=== PATIENT | female | born 1950 | race Caucasian/White ===

== ENCOUNTER 2018-07-01 22:49 | Observation (INO) | payer MEDICARE, BC ==
[2018-07-01] MEDS ORDERED: Fentanyl 100 MCG/2 ML VIAL ONE (23:51)
[2018-07-02] MEDS ORDERED: Acetaminophen 325 MG TAB PO PRN (01:56)
[2018-07-02] MEDS ORDERED: HYDROcodone/Acetaminophen 5/325 mg Tablet PO PRN (01:56)
[2018-07-02] MEDS: HYDROcodone/Acetaminophen 5/325 mg Tablet PO PRN ×2 (02:27→11:11)
[2018-07-02 02:59] VITALS: BMI 39.1
[2018-07-02 03:06] LABS: Troponin I Less than 0.010 ng/mL (< 0.028)
[2018-07-02] MEDS ORDERED: HYDROcodone/Acetaminophen 7.5/325 mg Tablet PO PRN ×2 (03:16)
--- NOTE | 2018-07-02 05:01 | HP ---
CHIEF COMPLAINT: Chest pain. HISTORY OF PRESENT ILLNESS: The patient is a 67-year-old female who presented in transfer from the [place] [facility]. The patient reports that she was working on some [employer] decorations about 6 days ago when she had a tumble and fell onto her left side. She stretched out her left hand to try to break her fall and came down on her arm. She had some pain in her left upper arm. It was causing her some immobility. She was trying to keep it into a sling, but was having hard time doing things such as getting dressed or fixing her hair. She then developed abrupt onset of a tearing type sensation in the left chest area around 2 p.m. on the day she presented to the emergency department, which was 07/01/2018. The patient had area of tenderness that she could palpate in the left lower anterior ribcage area and just medial to the left breast area. The pain has increased with any attempted movement or palpation. She has tried some [id number] medications such as anti-inflammatories without any significant improvement. She presented to the emergency department in [place] where her workup included a CT scan of the chest with PE protocol, which did not reveal any PE or aortic dissection. Labs were also obtained and her chemistries were unremarkable. Troponin was unremarkable specifically. She was given aspirin subsequently and transferred to our facility. They also did imaging of her left upper extremity, which did not reveal any evidence of fracture. Presently, the patient reports that the only thing that really helps significantly is the pain medications. She reports that her pain is 3/10, primarily worse because she has gotten up and gone to the bathroom and just that amount of movement was causing an increase in pain. The patient does note that she feels like the pain radiates directly to her back from a straight line from the anterior chest to the left back area, but does not feel like it radiates around her side. REVIEW OF SYSTEMS: The patient has no significant shortness of breath other than feeling like her breath is limited when she experiences pain taking a deep breath on that left side. She has no cough, fevers, or chills. She has no palpitations. She has no numbness, weakness, or tingling, or any other neurologic symptoms. All other systems were reviewed and all pertinent positives and negatives noted in the history of present illness. PAST MEDICAL HISTORY: Notable for hypertension and hyperlipidemia. She has a history of varicose vein ablation, some history of gastritis. 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 PAST SURGICAL HISTORY: Oophorectomy and tubal ligation and vein ablation. FAMILY HISTORY: Notable for some coronary artery disease. SOCIAL HISTORY: The patient is a nonsmoker, nondrug user. She does have 1 to 2 glasses of wine per month. She is . She is full code. Her would be her surrogate decision maker. ALLERGIES: PENICILLIN. MEDICATIONS: 1. Simvastatin 5 mg at bedtime. 2. Montelukast 10 mg daily. 3. Aspirin 81 mg daily. 4. Amiloride/hydrochlorothiazide 5/50 one p.o. daily. 5. Vitamin D3 15,000 units p.o. q.week. PHYSICAL EXAMINATION: VITAL SIGNS: Temperature 98.1, pulse 77, respirations 16, BP 105/58, O2 saturation 96% on room air. GENERAL APPEARANCE: Obese, age-appropriate female. She is in no distress. Awake, alert, oriented, pleasant, cooperative. HEENT: PERRL. No OP lesions. NECK: Supple and symmetric. HEART: Regular rate and rhythm without murmurs, gallops, or rubs. LUNGS: Clear to auscultation bilaterally. Good chest wall expansion and air exchange. ABDOMEN: Soft, nontender, and nondistended. Positive bowel sounds. No masses. No organomegaly. MUSCULOSKELETAL: Extremities have no cyanosis, clubbing, or edema. She does have tenderness to palpation in the distal lateral upper arm, primarily in the musculature. She has decreased range of motion in her shoulder because of pain in the upper arm with attempts to abduct the shoulder. She has small ganglion cyst on the right palmar surface of the wrist. She has little bit of edema in the base of the palms bilaterally. She also has very specific tenderness to palpation in the left lower anterior rib cage area, which reproduces her pain. It appears that this area may be slightly edematous and indurated. LABORATORY DATA: From outside facility, sodium 137, potassium 3.4, chloride 100 , CO2 of 29, BUN 21.6, creatinine 0.8, calcium 9.96, total bilirubin 0.3, AST 15, ALT 19, albumin 3.5, amylase 53, lipase 18. Troponin is less than 0.01. BNP 26.4. White count 10.3, hemoglobin 12.6, platelets 244. INR is 1.0. D-dimer 0.55. Urinalysis was negative. CTA of the chest negative. EKG; normal sinus rhythm at 85 beats per minute with no significant changes of the ST segments or T-waves. IMPRESSION AND PLAN: 1. Chest pain. This appears to be more musculoskeletal. She is placed in observation, continued on telemetry, and we will continue to trend her troponins. We will continue to offer her pain management with pain medicines as needed. She is presently kept n.p.o., although it is unclear that she will need any type of further testing. Once the troponins are fully negative, maybe worth call to her quality worker to see if she feels there is need to pursue any further intervention. However, may need to wait until she is somewhat improved. We will ask Physical Therapy to see the patient as well to see if we can offer her any further benefit from sling or other type of mechanical interventions. I suspect the patient has some cartilage injury in the ribcage area. 2. Left upper arm pain secondary to fall injury. Do not think she had a direct contusion likely a strain from trying to catch herself before she hit the ground. Again, pain medicine, the anti-inflammatories, and physical therapy. 3. History of hypertension. We will continue with her usual home medications. 4. Hyperlipidemia. Continue the simvastatin. Job ID: [id number] [facility]
[2018-07-02 06:42] LABS: Troponin I Less than 0.010 ng/mL (< 0.028)
[2018-07-02] MEDS ORDERED: Montelukast Sodium 10 mg Tablet PO SCH (09:00)
[2018-07-02] MEDS ORDERED: Hydrochlorothiazide 25 MG TAB PO SCH (09:00)
[2018-07-02] MEDS ORDERED: Aspirin 81 mg Enteric Coated Tablet PO SCH (09:00)
[2018-07-02 12:45] VITALS: TEMP 98.2
--- NOTE | 2018-07-02 12:58 | EKG ---
Test Reason : Blood Pressure : / mmHG Vent. Rate : 074 BPM Atrial Rate : 074 BPM P-R Int : 140 ms QRS Dur : 090 ms QT Int : 388 ms P-R-T Axes : 049 053 036 degrees QTc Int : 430 ms Normal sinus rhythm Anterior T wave inversion Abnormal ECG Confirmed by KRISHNA DUFF ([id number]), acquisitions editor JOE ZAPATA ([id number] on 07/02/2018 12:58:46 PM Referred By: Confirmed By:KRISHNA DUFF
[2018-07-02] MEDS ORDERED: Ondansetron PF 4 MG/2 ML Vial IVP PRN (14:31)
[2018-07-02] MEDS ORDERED: Ondansetron ODT 4 MG TAB PO PRN (14:32)
[2018-07-02 15:53] VITALS: BP 110/68
[2018-07-02] MEDS ORDERED: Simvastatin 5 MG TAB PO SCH (21:00)
--- NOTE | 2018-07-04 09:51 | DIS ---
DATE OF ADMISSION: 07/02/2018 DATE OF DISCHARGE: 07/02/2018 PRIMARY CARE PROVIDER: Josefa Rodriguez. CONSULTANTS: None. PROCEDURES: None. HOSPITAL COURSE: Ms. Healy is a 67-year-old female, who was admitted through the [facility] as a transfer from [place] [facility]. The patient reports that she was working on some [employer] decorations about 6 days ago, when she had a tumble and fell onto her left side. She stretched out her left hand to try to break her fall. Reports that she has some pain in her upper arm, it was causing her some immobility. She was trying to keep it in the sling, but having a hard time doing things such as getting dressed or fixing her hair. She reports that she has had increased pain with movement or palpation. She has tried some jywn-khe-kybesjd medications such as anti-inflammatories; denied any improvement. When she reported to the [place] [facility], she received a CT scan of the chest with PE protocol, which did not reveal any PE or aortic dissection. Labs were obtained and her chemistries were unremarkable. Troponins x3 were undetectable. She was given aspirin and transferred to [facility]'s ER. Imaging of her left upper extremity was also done, which did not reveal any evidence of a fracture. Presently, the patient reports that the only thing that helps her pain is pain medications. She reports the pain is on the left side of her chest, but is mostly when she moves, and is musculoskeletal in nature. She was admitted to the observation unit, where her troponins were trended and remained undetectable. The patient's vital signs remained stable. The patient's labs remained unremarkable. Discussion with her primary data designer, Dr. Centeno, who based on story, thought that it was most likely musculoskeletal in light of no EKG changes, negative troponins, and injury. Would like the patient to follow up with her in the office in the next several weeks. This was discussed with the patient, who was agreeable to the plan. This was discussed with who agrees to plan. The patient was subsequently discharged home. DISCHARGE DIAGNOSES: 1. Chest pain, atypical, most likely musculoskeletal. 2. Left upper arm pain secondary to an injury. 3. Hypertension. 4. Hyperlipidemia. REVIEW OF SYSTEMS: The patient still reports some left-sided chest pain when she moves. Does report continuing of her left upper arm pain primarily when she is moving around in the bed or when she gets up to go to the bathroom. Denies any shortness of breath. Denies any diaphoresis. Denies headache. Denies abdominal pain, nausea, vomiting, or diarrhea. All other systems reviewed and are negative unless mentioned in the hospital course. PHYSICAL EXAMINATION: VITAL SIGNS: Blood pressure 120/74, pulse is 83, respirations 18, O2 saturations 95% on room air, and temperature is 98.1. CONSTITUTIONAL: The patient is in no apparent distress. She is alert and oriented to person, place, and time. HEAD: Atraumatic and normocephalic. EYES: Pupils are equal, round, and reactive to light. Extraocular muscles are intact. ENT: Mouth exam is normal. Mucous membranes are moist. NECK: Normal range of motion. Trachea is midline. RESPIRATORY/CHEST: Breath sounds are clear. Chest movement is symmetrical. Tenderness to left-sided chest, anterior and lateral with palpation. CARDIOVASCULAR: Regular rate and rhythm of the heart. Heart sounds are normal. ABDOMEN: Nontender. Bowel sounds are heard. BACK: Normal inspection. Normal range of motion. EXTREMITIES: Upper extremities; inspection is normal. Range of motion is normal, although painful with movement. Lower extremities; inspection is normal. Range of motion is normal. NEURO: The patient is oriented to person, place, and time. Speech is normal. No focal motor or sensory deficits. SKIN: Warm, dry, and normal in color. PSYCH: The patient has a normal affect. MEDICATIONS: The patient will be continued on; 1. Amiloride/hydrochlorothiazide 5/50 mg 1 p.o. daily. 2. Aspirin 81 mg p.o. daily. 3. Vitamin D 10,000 unit capsule once every 7 days. 4. Singulair 10 mg p.o. daily. 5. Simvastatin 5 mg p.o. at bedtime. 6. Tylenol with Codeine 1 to 2 tablets, may take q.6 hours as needed for pain and/or cough. 7. Naproxen 550 mg p.o. q.12 as needed for pain. 8. Zofran 4 mg p.o. q.6 hours as needed for nausea. ALLERGIES: THE PATIENT IS ALLERGIC TO PENICILLINS. DISCHARGE CONDITION: The patient's condition is stable. DISPOSITION: The patient will be discharged home. FOLLOWUP: The patient should follow up with her primary care physician within next 7 days. She will follow up with Dr. Centeno within the next 2 weeks. Job ID: [id number]
== END 2018-07-02 17:10 | disposition home or self-care (01) ==
LOC: ERS 22:49 → 2SW 07-02 00:08
PROVIDERS: ADMIT Internal Medicine; ATTEND Internal Medicine
DX: R07.89 Other chest pain (principal); M79.622 Pain in left upper arm; I10 Essential (primary) hypertension; E78.5 Hyperlipidemia, unspecified; Z79.82 Long term (current) use of aspirin; Z79.899 Other long term (current) drug therapy; Z88.0 Allergy status to penicillin; Z98.890 Other specified postprocedural states; W19.XXXA Unspecified fall, initial encounter
CPT/HCPCS: 84484 ×3; 93005; 96374; 96375; 97139; 99285; G0378 ×2; G8978; G8979; G8980; 36415; J2405; J3010